=== PATIENT | female | born 2005 | race Caucasian/White ===

== ENCOUNTER 2023-02-28 01:44 | Emergency (ER) | payer BC ==
[2023-02-28] MEDS ORDERED: Clindamycin/D5W 600 mg/50 ml Premix Bag ONE (02:41)
[2023-02-28] MEDS ORDERED: Clindamycin/D5W 300 MG/50 ML BAG ONE ×2 (02:41→02:44)
== END 2023-02-28 04:35 | disposition home or self-care (01) ==
LOC: ERS 01:44
DX: L03.113 Cellulitis of right upper limb (principal); B35.9 Dermatophytosis, unspecified
CPT/HCPCS: 96365; J3490